=== PATIENT | male | born 1970 ===

== ENCOUNTER 2018-01-06 15:21 | Emergency (ER) | payer OTHER, SELFPAY ==
[2018-01-06 15:51] VITALS: BP 133/78; PULSE 78; RESP 18; TEMP 98.8; O2SAT 100
--- NOTE | 2018-01-06 16:16 | ED PDOC ---
Upper Extremity Pain/Injury Chief Complaint (Provider): Upper Extremity Problem/Injury History Per: Patient History/Exam Limitations: no limitations Onset/Duration Of Symptoms: Other (x1 month) Current Symptoms Are (Timing): Still Present Additional Complaint(s): 47 year old male presents to the ED complaining of right shoulder pain for 1 month. 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 He took Tylenol and Motrin with no relief and denies trauma, numbness, or tingling. PMD: Phil Bean <Lesley Jiang - Last Filed: 01/06/18 16:58> <Lulu Mcgrath - Last Filed: 01/11/18 13:42> Time Seen by Provider: 01/06/18 15:44 Chief Complaint (Nursing): Upper Extremity Problem/Injury Past Medical History Reviewed: Historical Data, Nursing Documentation, Vital Signs Vital Signs: Last Vital Signs Temp 98.8 F 01/06/18 15:48 Pulse 78 01/06/18 15:48 Resp 18 01/06/18 15:48 BP 133/78 01/06/18 15:48 Pulse Ox 100 01/06/18 15:48 - Medical History PMH: Arthritis, Chronic Pain - Surgical History Surgical History: No Surg Hx - Family History Family History: States: Unknown Family Hx - Immunization History Hx Tetanus Toxoid Vaccination: No Hx Influenza Vaccination: No Hx Pneumococcal Vaccination: No <Lesley Jiang - Last Filed: 01/06/18 16:58> Vital Signs: Last Vital Signs Temp 98.8 F 01/06/18 15:48 Pulse 78 01/06/18 15:48 Resp 18 01/06/18 15:48 BP 133/78 01/06/18 15:48 Pulse Ox 100 01/06/18 17:04 <Lulu Mcgrath - Last Filed: 01/11/18 13:42> - Home Medications Home Medications: Ambulatory Orders Medication Instructions Recorded Tobramycin 0.3% [Tobrex 0.3% Opth 1 drop GT TID #1 bottle 03/18/13 Soln] Acetaminophen [Tylenol 325mg tab] 975 mg PO TID #20 tab 03/18/17 Cyclobenzaprine [Cyclobenzaprine 5 mg PO TID #15 tab 03/18/17 HCl] Naproxen [Naprosyn] 500 mg PO BID PRN #20 tablet 03/18/17 RX: Naproxen [Naprosyn] 500 mg PO BID PRN #20 tablet 01/06/18 RX: traMADol [Ultram] 50 mg PO Q6H PRN #15 tab 01/06/18 - Allergies Allergies/Adverse Reactions: Allergies Allergy/AdvReac Type Severity Reaction Status Date / Time No Known Allergies Allergy Verified 03/18/17 17:57 Review of Systems ROS Statement: Except As Marked, All Systems Reviewed And Found Negative Musculoskeletal: Positive for: Shoulder Pain (Right) Neurological: Negative for: Numbness (or tingling) <Lesley Jiang - Last Filed: 01/06/18 16:58> Physical Exam - Reviewed Nursing Documentation Reviewed: Yes Vital Signs Reviewed: Yes - Physical Exam Appears: Positive for: Non-toxic, No Acute Distress Head Exam: Positive for: ATRAUMATIC, NORMAL INSPECTION Skin: Positive for: Normal Color, Warm, Dry Eye Exam: Positive for: Normal appearance Neck: Positive for: Normal, Painless ROM Cardiovascular/Chest: Positive for: Regular Rate, Rhythm. Negative for: Murmur Respiratory: Positive for: Normal Breath Sounds. Negative for: Wheezing, Respiratory Distress Extremity: Positive for: Tenderness (anterior humeral head), Other (Decreased flexion and adduction of the right shoulder; clavical nontender) Neurologic/Psych: Positive for: Alert, Oriented. Negative for: Motor/Sensory Deficits <Lesley Jiang - Last Filed: 01/06/18 16:58> - ECG O2 Sat by Pulse Oximetry: 100 (RA) Pulse Ox Interpretation: Normal <Lesley Jiang - Last Filed: 01/06/18 16:58> Medical Decision Making Medical Decision Making: Initial Impression: Right shoulder X-ray Initial Plan: --Right shoulder X-ray No acute fracture or dislocation on XR. Scribe Attestation: Documented by David Robins acting as a scribe for Lesley MEEK. Provider Scribe Attestation: All medical record entries made by the Scribe were at my direction and personally dictated by me. I have reviewed the chart and agree that the record accurately reflects my personal performance of the history, physical exam, medical decision making, and the department course for this patient. I have also personally directed, reviewed, and agree with the discharge instructions and disposition. <Lesley Jiang - Last Filed: 01/06/18 16:58> Disposition - Patient ED Disposition Is Patient to be Admitted: No Counseled Patient/Family Regarding: Diagnosis, Need For Followup, Rx Given - Disposition Disposition: Routine/Home Disposition Time: 16:59 <Lesley Jiang - Last Filed: 01/06/18 16:58> <Lulu Mcgrath - Last Filed: 01/11/18 13:42> - Clinical Impression Clinical Impression: Tendonitis of shoulder, right - Disposition Referrals: Luis Carlos Lewis MD [Staff Provider] - Condition: STABLE Prescriptions: RX: Naproxen [Naprosyn] 500 mg PO BID PRN #20 tablet PRN Reason: Pain RX: traMADol [Ultram] 50 mg PO Q6H PRN #15 tab PRN Reason: Pain Instructions: Shoulder Tendinopathy (DC) Forms: [employer] (Polish) Addendum Addendum: 01/11/18 13:41 reviewed chart and agree with PA assessment and plan. <Lulu Mcgrath - Last Filed: 01/11/18 13:42>
--- NOTE | 2018-01-06 17:32 | RAD ---
Date of service: 01/06/2018 PROCEDURE: Radiographs of the Right Shoulder HISTORY: pain COMPARISON: No prior. FINDINGS: BONES: Normal. No fracture. JOINTS: Normal. Glenohumeral and acromioclavicular joints preserved. No osteoarthritis. SOFT TISSUES: Normal. OTHER FINDINGS: None. IMPRESSION: Normal radiographs of the right shoulder.
== END 2018-01-06 17:11 | disposition home or self-care (01) ==
LOC: H.ER 15:21
DX: M75.81 Other shoulder lesions, right shoulder (principal)